=== PATIENT | female | born 1985 | race Caucasian/White ===

== ENCOUNTER 2018-01-15 05:40 | Inpatient (IN) | payer OTHER ==
[2018-01-15 06:40] VITALS: BMI 32.1
--- NOTE | 2018-01-15 06:42 | HP ---
Past Medical History - Primary Care Physician PCP:: Deidra Hutchinson - Admission Chief Complaint: 32 yrs , 39 weeks gestation srom since 4.30 AM, onset LP since 5.00AM ,brought by EMT History of Present Illness: Late registrant at [address] [place] [address] , on 01/07/18 , only 2 visits . Pt brought her records from her country DR Tamia Cain panel 01/07/18 O Pos, Hbsag neg, Rpr nr, Hiv neg, Rubella immune , sickle neg, lead neg, gc/ct neg,Hgb A1c 5.3 , GBS neg h/o pap ascus , anemia h/h 9.7/28.6, plt 320 in transfer records .h/o vomiting , Rx zofran h/o seen in L&D & ER for RUQ pain on 12/12/17, Iv hydration given, OB sono 35.4 weeks sliup. Liver sono cholelithiasis , no hydronephrosis on renal sono . 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 Weeks Gestation by Dates: 39 ...EDC by Dates: 01/22/18 ...EDC by Sono: 01/21/18 (39.1 weeks ) Heme/Onc: Yes: Anemia (rx po pnv & iron) Infectious Disease: Yes: Other (none known to her) Psych: Yes: Other (declines mental isues) Endocrine: No: Diabetes Mellitus, Hyperthyroidism, Hypothyroidism - Past Surgical History Past Surgical History: Yes: None Hx Myomectomy: No Hx Transabdominal Cerclage: No - Smoking History Smoking history: Never smoked - Alcohol/Substance Use History of Substance Use: reports: None Home Medications - Allergies Allergies/Adverse Reactions: Allergies Allergy/AdvReac Type Severity Reaction Status Date / Time aspirin Allergy Nausea Verified 12/12/17 12:10 - Home Medications Home Medications: Ambulatory Orders No122/Iron/Folic Acid [ Multi Tablet] 1 each PO DAILY 12/12/17 Physical Exam - Maternity Vital Signs: Vital Signs Temperature 97.9 F 01/15/18 06:21 Pulse Rate 87 01/15/18 06:21 Respiratory Rate 20 01/15/18 06:21 Blood Pressure 125/74 01/15/18 06:21 O2 Sat by Pulse Oximetry (%) Constitutional: Yes: Well Nourished Eyes: Yes: WNL HENT: Yes: WNL, Normocephalic Neck: Yes: WNL Cardiovascular: Yes: WNL Lungs: Clear to auscultation Breast(s): Yes: WNL. No: Mass - Abdominal Exam/OB Fundal Height: 38 Number of Fetuses: Single Presentation: Vertex Contractions: Yes Regularity: Irregular (dysfunctional uc) Intensity: Mild/Mod Monitor Mode: External Heart Rate (range): 150 Heart Rate Location: [facility] Category: I Accelerations: Uniform Decelerations: None - Vaginal Exam/OB Vaginal Bleediing: No Speculum Exam: No Dilatation (cm): close Effacement (%): 50 Amniotic Membrane Status: Ruptured (gross leaking, large amount of fluids) Nitrazine Test: Positive Amniotic Fluid: Yes: Clear Presentation: Vertex/Position Station: -3 - Physical Exam Musculoskeletal: Yes: WNL Extremities: Yes: WNL. No: Calf Tenderness Edema: Yes Edema: LLE: 1+, RLE: 1+ Integumentary: Yes: WNL Deep Tendon Reflex Grade: Normal +2 ...Motor Strength: WNL Psychiatric: Yes: WNL - Labs Lab Results: Laboratory Tests 01/15/18 01/15/18 01/15/18 07:20 07:20 07:20 WBC 10.4 H Hgb 12.3 Hct 35.1 Plt Count 218 Neutrophils % 74.5 Lymphocytes % 16.6 D PT with INR 10.70 INR 0.95 PTT (Actin FS) 26.5 L Sodium 136 Potassium 4.1 Chloride 103 Carbon Dioxide 22 BUN 9 Creatinine 0.5 L Random Glucose 80 Calcium 8.9 Ur Leukocyte Esterase U Marijuana (THC) Screen RPR Titer 01/15/18 01/15/18 01/15/18 07:20 09:30 09:30 WBC Hgb Hct Plt Count Neutrophils % Lymphocytes % PT with INR INR PTT (Actin FS) Sodium Potassium Chloride Carbon Dioxide BUN Creatinine Random Glucose Calcium Ur Leukocyte Esterase Negative U Marijuana (THC) Screen Negative RPR Titer Nonreactive Problem List - Problems (1) 39 weeks gestation of Code(s): Z3A.39 - 39 WEEKS GESTATION OF (2) SROM (spontaneous rupture of membranes) Code(s): HNG1926 - Assessment/Plan 32 yrs 39 weeks, srom ,onset LP natural , gbs neg Plan : allow progress of labor natural pitocin prn stadol + phenrgan prn for pain trial of labor for vaginal delivery antibiotics prophylaxis if not delivered within 18 hrs
[2018-01-15 07:47] LABS: BASO % 0.2 % (0-2.0); EOS % 1.2 % (0-4.5); HEMATOCRIT 35.1 % (32.4-45.2); HEMOGLOBIN 12.3 GM/dL (10.7-15.3); LYMPH % 16.6 % (8-40); MCH 30.6 pg (25.7-33.7); MCHC 34.9 g/dl (32.0-36.0); MEAN CELL VOLUME 87.8 fl (80-96); MEAN PLT VOLUME 7.1 fl (7.5-11.1); MONO % 7.5 % (3.8-10.2); NEUT % 74.5 % (42.8-82.8); PLATELET COUNT 218 K/MM3 (134-434); RDW 15.1 % (11.6-15.6); WHITE BLOOD COUNT 10.4 K/mm3 (4.0-10.0)
[2018-01-15 07:51] LABS: INR 0.95 (0.82-1.09); PROTHROMBIN TIME (PATIENT) 10.7 SEC (9.98-11.88)
[2018-01-15 07:54] LABS: ACTIVATED PTT 26.5 SECONDS (26.9-34.4)
[2018-01-15 08:04] LABS: ANION GAP 11 (8-16); BLOOD UREA NITROGEN 9 mg/dL (7-18); CALCIUM 8.9 mg/dL (8.5-10.1); CHLORIDE 103 mmol/L (98-107); CO2 22 mmol/L (21-32); CREATININE 0.5 mg/dL (0.55-1.02); GLUCOSE,RANDOM 80 mg/dL (74-106); POTASSIUM 4.1 mmol/L (3.5-5.1); SODIUM 136 mmol/L (136-145)
[2018-01-15] MEDS ORDERED: TUBERCULIN PPD 5 TU/0.1ML SYRINGE (IN PATIENT USE ONLY) ID ONE (09:30)
[2018-01-15] MEDS: DEXTROSE 5%-LACTATED RINGERS 1,000 ML IV SCH ×2 (10:05→17:43)
[2018-01-15 11:07] LABS: URINE APPEARANCE CLEAR; URINE BILIRUBIN NEGATIVE (<2.0 mg/dL); URINE COLOR LTYELLOW; URINE GLUCOSE (UA) NEGATIVE (NEGATIVE); URINE KETONE NEGATIVE (NEGATIVE); URINE LEUK ESTERASE NEGATIVE (NEGATIVE); URINE NITRITE NEGATIVE (NEGATIVE); URINE PROTEIN NEGATIVE (NEGATIVE); URINE UROBILINOGEN NEGATIVE mg/dL (0.2-1.0)
[2018-01-15 11:10] LABS: EPI CELLS RARE /HPF (FEW); URINE HYALINE CAST 3 /lpf; URINE MUCUS RARE
[2018-01-15 11:18] LABS: COCAINE, UR NEGATIVE ng/ml (CUTOFF=300); METHADONE, UR NEGATIVE ng/ml (CUTOFF=300); OPIATES, URI NEGATIVE ng/ml (CUTOFF=300); PHENCYCLIDINE,URINE NEGATIVE ng/ml (CUTOFF=25); URINE AMPHETAMINES NEGATIVE ng/ml (CUTOFF=500); URINE BARBITURATES NEGATIVE ng/ml (CUTOFF=200); URINE BENZODIAZEPINES NEGATIVE ng/ml (CUTOFF=200)
[2018-01-15] MEDS ORDERED: OXYTOCIN 30 UNITS in 0.9% NS 30 UNIT/500 ML INFUS.BAG IVPB SCH (11:30)
[2018-01-15] MEDS ORDERED: PROMETHAZINE HCL 25 MG/1 ML VIAL IVPUSH ONE (11:31)
[2018-01-15] MEDS ORDERED: BUTORPHANOL TARTRATE 1 MG/ML VIAL IVPB ONE (11:31)
--- NOTE | 2018-01-15 12:51 | PN ---
Progress Note (short form) - Note Progress Note: 12.40 pelvic ft/mid pose, 50 %/mr/vx /-3 fhr 130-140, fhr cat-1 , UC 5-6 min 11.30 AM Pitocin augmentation started at Selected Entries 01/15/18 01/15/18 11:00 12:00 Temperature 98.8 F Pulse Rate 98 H 84 Blood Pressure 122/69 130/65 I will hand over the management to Dr Hazel communications project manager. Problem List - Problems (1) 39 weeks gestation of Code(s): Z3A.39 - 39 WEEKS GESTATION OF (2) SROM (spontaneous rupture of membranes) Code(s): SJL7907 -
--- NOTE | 2018-01-15 17:41 | PN ---
Progress Note (short form) - Note Progress Note: cx 1 to 2 cm 70 vx -2, mr, clear, fhr cat1 regular contraction
[2018-01-15] MEDS ORDERED: PROMETHAZINE HCL 25 MG/1 ML VIAL ONE (18:32)
[2018-01-15] MEDS ORDERED: BUTORPHANOL TARTRATE 1 MG/ML VIAL ONE ×2 (18:32)
[2018-01-15] MEDS ORDERED: FENTANYL/BUPIVACAINE/NS/PF - PCEA - 50 ML DISP.SYRIN EP ONE (23:20)
--- NOTE | 2018-01-15 23:20 | PN ---
Progress Note (short form) - Note Progress Note: cx 3 cm 80 vx -1 mr, fhr cat1. regular contarction
[2018-01-15] MEDS ORDERED: AMPICILLIN SODIUM 2 GM VIAL ONE (23:22)
[2018-01-15] MEDS ORDERED: ELECTROLYTE-148 SOLN 1,000 ML IV SCH (23:30)
[2018-01-15] MEDS ORDERED: AMPICILLIN - 2 GM in SODIUM CHLORIDE 100 ML IVPB ONE (23:45)
[2018-01-16] MEDS ORDERED: NALOXONE HCL 0.4 MG/ML VIAL IVPUSH PRN (00:13)
[2018-01-16] MEDS ORDERED: FENTANYL/BUPIVACAINE/NS/PF - PCEA - 50 ML DISP.SYRIN EP SCH (00:15)
[2018-01-16] MEDS ORDERED: FENTANYL/BUPIVACAINE/NS/PF - PCEA - 50 ML DISP.SYRIN EP ONE (02:45)
[2018-01-16] MEDS ORDERED: AMPICILLIN SODIUM 1 GM VIAL ONE (02:46)
[2018-01-16] MEDS ORDERED: AMPICILLIN - 1 GM in SODIUM CHLORIDE 100 ML IVPB SCH (03:30)
[2018-01-16] MEDS ORDERED: LIDOCAINE HCL 1% PRESERVATIVE FREE - 30ML VIAL ONE (03:50)
[2018-01-16] MEDS ORDERED: OXYTOCIN 20 UNITS in 0.9% NS 20 UNIT/1,000 ML INFUS.BAG IV ONE ×2 (03:51→09:22)
[2018-01-16] MEDS ORDERED: BISACODYL 10 MG SUPP.RECT RC PRN (05:51)
[2018-01-16] MEDS ORDERED: BENZOCAINE 28 GM HEMORRHOIDAL OINTMENT TP PRN (05:51)
[2018-01-16] MEDS ORDERED: WITCH HAZEL 50% (TUCKS) 40 PAD/JAR PAD TP PRN (05:51)
[2018-01-16] MEDS ORDERED: IBUPROFEN 600 MG TABLET (FP) PO PRN (05:51)
[2018-01-16] MEDS ORDERED: ACETAMINOPHEN 325 MG TABLET (FP) PO PRN (05:51)
[2018-01-16] MEDS ORDERED: BENZOCAINE 20% 57 GM BOTTLE TP PRN (05:51)
[2018-01-16] MEDS ORDERED: METHYLERGONOVINE MALEATE 0.2 MG/1 ML AMP IM PRN (05:51)
[2018-01-16] MEDS ORDERED: oxyCODONE HCL 5 MG TABLET PO PRN (05:51)
--- NOTE | 2018-01-16 05:54 | PN ---
Progress Note (short form) - Note Progress Note: 430 am full 100 vx 1+ wants to push. fhr cat 1
[2018-01-16] MEDS ORDERED: OXYTOCIN 20 UNITS in 0.9% NS 20 UNIT/1,000 ML INFUS.BAG IV SCH (06:00)
[2018-01-16 06:39] LABS: ARTERIAL BLOOD GAS BASE EXCESS -5.1 meq/l (-2-2); ARTERIAL BLOOD GAS PCO2 54.6 mmHg (35-45); ARTERIAL BLOOD GAS pH 7.25 (7.35-7.45)
[2018-01-16 06:43] LABS: VENOUS PC02 49.3 mmHg (38-52); VENOUS PH 7.3 (7.32-7.42); VENOUS PO2 28.1 mmHg (28-48)
[2018-01-16 06:44] LABS: ARTERIAL BLOOD GAS PO2 22.9 mmHg (80-100)
[2018-01-16] MEDS ORDERED: PRENATAL VITAMINS W/ FOLIC ACID TABLET (FP) PO SCH (10:00)
[2018-01-16] MEDS: OXYTOCIN 20 UNITS in 0.9% NS 20 UNIT/1,000 ML INFUS.BAG IV SCH (10:00)
[2018-01-16] MEDS ORDERED: PATIENT'S OWN MEDICATION (NON-FORMULARY) (Prenatal No122/Iron/Folic Acid [Prenatal Multi T PO SCH (10:00)
[2018-01-16] MEDS: FERROUS SO4 325 MG TABLET (FP) PO SCH ×2 (10:48→21:26)
[2018-01-16] MEDS: PRENATAL VITAMINS W/ FOLIC ACID TABLET (FP) PO SCH (10:49)
[2018-01-16] MEDS: SENNOSIDES/DOCUSATE COMBO (SENNA PLUS) TABLET (UD) PO PRN (21:27)
[2018-01-17] MEDS: OXYTOCIN 20 UNITS in 0.9% NS 20 UNIT/1,000 ML INFUS.BAG IV SCH (07:30)
[2018-01-17 08:27] LABS: BASO % 0.2 % (0-2.0); EOS % 0.7 % (0-4.5); HEMATOCRIT 29.1 % (32.4-45.2); HEMOGLOBIN 9.8 GM/dL (10.7-15.3); LYMPH % 18.6 % (8-40); MCH 30.3 pg (25.7-33.7); MCHC 33.6 g/dl (32.0-36.0); MEAN CELL VOLUME 90.3 fl (80-96); MEAN PLT VOLUME 7.2 fl (7.5-11.1); MONO % 7.8 % (3.8-10.2); NEUT % 72.7 % (42.8-82.8); PLATELET COUNT 180 K/MM3 (134-434); RBC 3.22 M/mm3 (3.60-5.2); RDW 14.9 % (11.6-15.6); WHITE BLOOD COUNT 12.6 K/mm3 (4.0-10.0)
--- NOTE | 2018-01-17 08:27 | PN ---
Progress Note (short form) - Note Progress Note: ppd 1 doing well, ambulating CBC, BMP 01/15/18 07:20 Last Vital Signs Temp Pulse Resp BP Pulse Ox 98.2 F 78 20 101/64 93 L 01/17/18 06:00 01/17/18 06:00 01/17/18 06:00 01/17/18 06:00 01/16/18 06:15 abdomen soft, non tender , uterus firm lochia mild , no calf tenderness perineum clean plan ambulate, cbc
[2018-01-17] MEDS ORDERED: FLU VACCINE QUAD 60 MCG/0.5 ML (MDV 17-18) IM ONE ×2 (08:45→10:00)
[2018-01-17] MEDS ORDERED: PNEUMOCOCCAL 23 VACCINE 0.5 ML VIAL IM ONE (09:00)
[2018-01-17] MEDS: FERROUS SO4 325 MG TABLET (FP) PO SCH ×2 (09:34→22:07)
[2018-01-17] MEDS: PRENATAL VITAMINS W/ FOLIC ACID TABLET (FP) PO SCH (09:34)
[2018-01-17] MEDS ORDERED: DIPHTH,PERTUSS(ACELL),TET 0.5 ML DISP.SYRIN IM ONE (10:00)
[2018-01-17] MEDS ORDERED: PNEUMOC 13-VAL CONJ-DIP CRM/PF 0.5 ML DISP.SYRIN IM ONE (10:00)
[2018-01-17] MEDS: SENNOSIDES/DOCUSATE COMBO (SENNA PLUS) TABLET (UD) PO PRN (22:07)
[2018-01-18] MEDS ORDERED: DOCUSATE SODIUM 100 MG CAPSULE (FP) PO ONE (09:26)
[2018-01-18] MEDS: FERROUS SO4 325 MG TABLET (FP) PO SCH (09:43)
[2018-01-18] MEDS: PRENATAL VITAMINS W/ FOLIC ACID TABLET (FP) PO SCH (09:43)
[2018-01-18 11:52] VITALS: BP 122/73; PULSE 79; TEMP 98.2
--- NOTE | 2018-01-18 12:53 | DS ---
Physical Exam-MERCHANDISER SEASONAL Vital Signs: Vital Signs Temperature 98.2 F 01/18/18 10:00 Pulse Rate 79 01/18/18 10:00 Respiratory Rate 20 01/18/18 10:00 Blood Pressure 122/73 01/18/18 10:00 O2 Sat by Pulse Oximetry (%) 93 L 01/16/18 06:15 Constitutional: Yes: Well Nourished, No Distress, Calm Eyes: Yes: WNL, Conjunctiva Clear, EOM Intact HENT: Yes: WNL, Atraumatic, Normocephalic Neck: Yes: WNL, Supple, Trachea Midline Cardiovascular: Yes: WNL, Regular Rate and Rhythm Respiratory: Yes: WNL, Regular, CTA Bilaterally Gastrointestinal: Yes: WNL ...Rectal Exam: Yes: WNL Renal/: Yes: WNL ....Post : Yes: Uterus firm, Uterus non-tender, Slight lochia rubra, Slight lochia serosa Breast(s): Yes: WNL Musculoskeletal: Yes: WNL Extremities: Yes: WNL, Internal Rotation Integumentary: Yes: WNL Neurological: Yes: WNL, Alert, Oriented ...Motor Strength: WNL Psychiatric: Yes: WNL, Alert, Oriented Labs: CBC, BMP 01/17/18 07:45 01/15/18 07:20 Delivery - Delivery Vaginal Delivery: Spontaneous (no complication) Type of Anesthesia: Epidural Episiotomy/Laceration: Midline EBL (cc): 350 Delivery, Single - Stages of Labor Date 1st Stage Initiatied: 01/15/18 Time 1st Stage Initiated: 05:00 Date 2nd Stage Initiated: 01/16/18 Time 2nd Stage Initiated: 04:30 Date of Delivery: 01/16/18 Time of Delivery: 05:24 Time Placenta Delivered: 05:35 Placenta: Yes: Spontaneous - Condition of Infant Trust Administrator/Student Activities Director Present: No Gender: Female Weight: 7 lb 10 oz Position: OA Total Hours ROM (Hrs/Mins): 25Hr/5Mins - 1 Minute Total Score: 8 5 Minutes Total Score: 9 - [place] Feeding Plan Initial Plan: Exclusive throughout hospitalization Discharge Summary Reason For Visit: LABOR Current Active Problems 39 weeks gestation of (Acute) SROM (spontaneous rupture of membranes) (Acute) Procedures: Principal: Condition: Good - Instructions Diet, Activity, Other Instructions: regular diet, no intercourse, , if pain, heavy vaginal bleeding call MD. Pt instructed to call call clinic for 4-6 week follow up appointment. Referrals: Son Hazel MD [Staff Physician] - Disposition: HOME - Home Medications Comprehensive Discharge Medication List: Ambulatory Orders No122/Iron/Folic Acid [ Multi Tablet] 1 each PO DAILY 12/12/17 Ibuprofen [Motrin -] 600 mg PO QID #28 tablet 01/17/18
== END 2018-01-18 15:10 | disposition home or self-care (01) | DRG 560 ==
LOC: JDEL 05:40 → JLDR 05:50 → J3W 01-16 08:35
PROVIDERS: ADMIT Obstetrics & Gynecology; ATTEND Obstetrics & Gynecology
PROC: 10E0XZZ Delivery of Products of Conception, External Approach (ICD-10-PCS; principal; 2018-01-16)
PROC: 0W8NXZZ Division of Female Perineum, External Approach (ICD-10-PCS; 2018-01-16)
DX: O80 Encounter for full-term uncomplicated delivery (principal); Z3A.39 39 weeks gestation of pregnancy; Z37.0 Single live birth
CPT/HCPCS: 36415; 36600; 59409; 80048; 80307; 81003; 81015; 82803; 85025; 85610; 85730; 86593; 86850; 86900; 86901; 90688; 90715; 90732; G0008; G0009

== ENCOUNTER 2018-01-21 15:32 | Day surgery (SDC) | payer OTHER ==
--- NOTE | 2018-01-21 15:48 | PDOC ---
Rapid Medical Evaluation Time Seen by Provider: 01/21/18 15:39 Medical Evaluation: Allergies Allergy/AdvReac Type Severity Reaction Status Date / Time aspirin Allergy Nausea Verified 01/21/18 15:44 01/21/18 15:45 I have performed a brief in-person evaluation of this patient. The patient presents with a chief complaint of: worsening bleeding, delivered 01/15, 2 full pads since this am, OBGYN [facility], +chills this morning, Pertinent physical exam findings: well appearing, VSS I have ordered the following: labs The patient will proceed to the ED for further evaluation. Discharge Disposition - Diagnosis bleeding - Discharge Dispostion Disposition: LEFT BEFORE LIO AHMADI - Referrals - Patient Instructions - Post Discharge Activity
[2018-01-21 15:52] VITALS: BMI 30.2
--- NOTE | 2018-01-21 16:55 | PDOC ---
Attending Attestation - HPI HPI: 01/21/18 18:47 The patient is a 36 year old female ((5 days s/p spontaneous vaginal delivery of healthy baby about 18 hours after ROM, required episiotomy and sutures), with no known past medical history presents to the emergency department with heavy bleeding since earlier today. The patient reports she bled through 3 pads today. The patient reports mild cramping, chills and mild dysuria. The patient denies chest pain, shortness of breath, headache and dizziness. Denies fever, chills, nausea, vomit, Vaginal discharge, diarrhea and constipation. Denies frequency, urgency and hematuria. Allergies: Aspirin Social History: None reported OB: Dr. Hazel - Physicial Exam PE: 01/21/18 18:48 GENERAL: Awake, alert, and fully oriented, in no acute distress HEAD: No signs of trauma EYES: PERRLA, EOMI, sclera anicteric, conjunctiva clear ENT: Auricles normal inspection, hearing grossly normal, nares patent, oropharynx clear without exudates. Moist mucosa NECK: Normal ROM, supple, no lymphadenopathy, JVD, or masses LUNGS: Breath sounds equal, clear to auscultation bilaterally. No wheezes, and no crackles HEART: Regular rate and rhythm, normal S1 and S2, no murmurs, rubs or gallops ABDOMEN: (+) Palpable uterus. Below umbilicus: mild super pubic tenderness. Soft , normoactive bowel sounds. No guarding, no rebound. No masses EXTREMITIES: Normal range of motion, no edema. No clubbing or cyanosis. No cords, erythema, or tenderness NEUROLOGICAL: Cranial nerves II through XII grossly intact. Normal speech. SKIN: Warm, Dry, normal turgor, no rashes or lesions noted. - Medical Decision Making 01/21/18 18:51 Documentation prepared by Danay Fitch, acting as medical laboratory technicians for Josefa Hui DO. <Danay Fitch - Last Filed: 01/21/18 18:53> - Resident Resident Name: Alina Burroughs - ED Attending Attestation I have performed the following: I have examined & evaluated the patient, The case was reviewed & discussed with the resident, I agree w/resident's findings & plan, Exceptions are as noted - Medical Decision Making 01/21/18 16:55 I, Dr. Josefa Hui, DO, attest that this document has been prepared under my direction and personally reviewed by me in its entirety. I further attest, that it accurately reflects all work, treatment, procedures and medical decision -making performed by me. 01/21/18 17:32 a/p: 33yo s/p spontaneous vag delivery 4 days ago with vaginal bleeding, chills, and dysuria -bled through 3 pads today -had an episotomy during the delivery -hot and cold today - no documented fevers -will check labs, ua, ucx -tv us to eval for poss retained products -Dr. Hazel was CRYPTOLOGIC SUPPORT SPECIALIST -will monitor and reassess 01/21/18 21:35 pt with poss retained products discussed case with Dr. Acevedo who will see the patient in consult 01/21/18 22:01 Dr. Acevedo at the bedside to eval the patient 01/21/18 22:[address] Acevedo - to the OR for d/c <Josefa Hui - Last Filed: 01/21/18 22:08>
--- NOTE | 2018-01-21 17:02 | PDOC ---
History of Present Illness - General Chief Complaint: Vaginal Bleeding Stated Complaint: BLEEDING (POST-PREG) Time Seen by Provider: 01/21/18 15:39 History Source: Patient Exam Limitations: No Limitations - History of Present Illness Initial Comments: 33 YOF who is (5 days s/p spontaneous vaginal delivery of healthy baby about 18 hours after ROM, required episiotomy and sutures, GBS- but reports she was given abx for PROM) with h/o asthma who p/w continued bright red vaginal bleeding since delivery, now with blood clots. She additionally notes 7/10 suprapubic pain (patient points). The patient notes chills and mild burning on urination, but denies any measured fever, chills, nausea, vomiting, diarrhea, constipation, strange colors/smells to her urine, vaginal discharge, headache, vision changes, chest pain, SOB, worsened swelling or leg pain, or other symptoms. Past History - Past Medical History Allergies/Adverse Reactions: Allergies Allergy/AdvReac Type Severity Reaction Status Date / Time aspirin Allergy Nausea Verified 01/21/18 15:49 Home Medications: Ambulatory Orders No122/Iron/Folic Acid [ Multi Tablet] 1 each PO DAILY 12/12/17 Asthma: Yes Cancer: No Cardiac Disorders: No COPD: No Diabetes: No HTN: No Seizures: No Thyroid Disease: No - Immunization History Immunization Up to Date: Yes - Suicide/Smoking/Psychosocial Hx Smoking History: Never smoked Have you smoked in the past 12 months: No Information on smoking cessation initiated: No Hx Alcohol Use: No Drug/Substance Use Hx: No Substance Use Type: None Hx Substance Use Treatment: No Review of Systems - Review of Systems Able to Perform ROS?: Yes Constitutional: Yes: Chills. No: Fever, Unexplained wgt Loss HEENTM: No: Nose Congestion, Throat Pain Respiratory: No: Cough, Shortness of Breath Cardiac (ROS): No: Chest Pain, Palpitations ABD/GI: Yes: Other (abdominal pain). No: Constipated, Diarrhea, Nausea, Vomiting : Yes: Burning, Other (vaginal bleeding). No: Dysuria Musculoskeletal: No: Back Pain, Neck Pain Integumentary: No: Bruising, Rash Neurological: No: Headache, Numbness, Tingling, Weakness, Dizziness Endocrine: No: Unexplained Weight Gain, Unexplained Weight Loss *Physical Exam - Vital Signs Last Vital Signs Temp Pulse Resp BP Pulse Ox 98.3 F 84 17 146/80 98 01/21/18 15:49 01/21/18 15:49 01/21/18 15:49 01/21/18 15:49 01/21/18 15:49 - Physical Exam General Appearance: Yes: Nourished, Appropriately Dressed, Other (well appearing and appropriately answering Uzbek-speaking female accompanied by her mother). No: Apparent Distress HEENT: positive: EOMI, KENZIE, Normal ENT Inspection, Normal Voice, Hearing Grossly Normal. negative: Scleral Icterus (R), Scleral Icterus (L), Nasal Congestion Neck: positive: Trachea midline, Supple. negative: Tender, Rigid Respiratory/Chest: positive: Lungs Clear, Normal Breath Sounds. negative: Respiratory Distress, Crackles, Rhonchi, Stridor, Wheezing Cardiovascular: positive: Regular Rhythm, Regular Rate, S1, S2. negative: Edema , JVD, Murmur Female Pelvic Exam: positive: other (moderate amount of bright red blood from the vaginal vault, episiotomy incision with sutures in place and no dehiscence) Gastrointestinal/Abdominal: positive: Normal Bowel Sounds, Soft. negative: Tender, Organomegaly, Pulsatile Mass, Guarding Musculoskeletal: positive: Normal Inspection. negative: Decreased Range of Motion, Vertebral Tenderness Extremity: positive: Normal Capillary Refill, Normal Inspection, Normal Range of Motion. negative: Tender, Cyanosis Integumentary: positive: Normal Color, Dry, Warm. negative: Erythema, Rash, Bruising Neurologic: positive: microgrinder operator II-XII NML intact (grossly), Fully Oriented, Alert, Normal Mood/Affect, Normal Response, Motor Strength 5/5. negative: Facial Droop , Numbness, Sensory Deficit, Confused, Disoriented ED Treatment Course - LABORATORY CBC & Chemistry Diagram: 01/21/18 17:25 01/21/18 17:25 Medical Decision Making - Medical Decision Making Adult female patient p/w suprapubic/pelvic pain and vaginal bleeding 5 days . Initial Vital Signs Temp Pulse Resp BP Pulse Ox 98.3 F 84 17 146/80 98 01/21/18 15:49 01/21/18 15:49 01/21/18 15:49 01/21/18 15:49 01/21/18 15:49 Exam: Well appearing, normal heart and lung exams, abdominal exam gravid with mild suprapubic ttp, bright red blood on genital exam, sutured episiotomy site without dehiscence, no discharge DDX IBNLT: normal vaginal bleeding and pain, episiotomy dehiscence, retained products, UTI/pyelonephritis, endometritis, chorioamnionitis , ovarian cyst, PID/TOA, cervicitis, hernia, appendicitis, musculoskeletal, dysmenorrhea, fibroids, etc. W/U ordered: CBCD CMP Mg Phos Coags T&S UA UCx GC/Chlam/trich amplification ( cervical swab) GC culture, transvaginal US TX ordered: IVF, Ofirmev Unlikely UTI/pyelonephritis as patient has no dysuria, strange colors/smells, no h/o recurrent UTI. Unlikely ovarian cyst as patient denies h/o ovarian cysts, unlikely hemorrhagic as pt denies sxs of anemia. Unlikely PID/TOA/cervicitis as patient denies h/o STIs, no report of abnormal discharge no adnexal ttp Unlikely endometritis as patient is not recently , no procedures, no abnormal discharge. Labs: Laboratory Results - last 24 hr 01/21/18 01/21/18 01/21/18 17:25 17:25 17:25 WBC 9.3 RBC 3.74 Hgb 11.6 D Hct 33.7 D MCV 90.1 MCH 30.9 MCHC 34.3 RDW 14.7 Plt Count 338 D MPV 6.6 L Neutrophils % 74.1 Lymphocytes % 16.6 Monocytes % 6.4 Eosinophils % 2.0 D Basophils % 0.9 D PT with INR 11.00 INR 0.97 Sodium 140 Potassium 3.8 Chloride 103 Carbon Dioxide 27 Anion Gap 10 BUN 10 Creatinine 0.6 Creat Clearance w eGFR > 60 Random Glucose 85 Calcium 8.9 Total Bilirubin 0.6 AST 28 ALT 27 Alkaline Phosphatase 150 H Total Protein 6.7 Albumin 3.2 L Urine Color Urine Appearance Urine pH Ur Specific Sherman Urine Protein Urine Glucose (UA) Urine Ketones Urine Blood Urine Nitrite Urine Bilirubin Urine Urobilinogen Ur Leukocyte Esterase Urine WBC (Auto) Urine RBC (Auto) Ur Epithelial Cells Urine Mucus Blood Type Antibody Screen 01/21/18 01/21/18 17:25 18:26 WBC RBC Hgb Hct MCV MCH MCHC RDW Plt Count MPV Neutrophils % Lymphocytes % Monocytes % Eosinophils % Basophils % PT with INR INR Sodium Potassium Chloride Carbon Dioxide Anion Gap BUN Creatinine Creat Clearance w eGFR Random Glucose Calcium Total Bilirubin AST ALT Alkaline Phosphatase Total Protein Albumin Urine Color Straw Urine Appearance Clear Urine pH 6.0 Ur Specific Sherman 1.009 Urine Protein Negative Urine Glucose (UA) Negative Urine Ketones Negative Urine Blood 3+ H Urine Nitrite Negative Urine Bilirubin Negative Urine Urobilinogen Negative Ur Leukocyte Esterase Trace Urine WBC (Auto) 74 Urine RBC (Auto) 27 Ur Epithelial Cells Rare Urine Mucus Rare Blood Type O POSITIVE Antibody Screen Negative Pelvis US: Heterogenous material within the uterus may represent clot or retained POC. Reassessment: Continued mild suprapubic ttp and moderate vaginal bleeding Consults: Dr. Acevedo sees and examines patient. The patients symptoms persist despite ED treatments. The patient is unsafe for discharge at this time. They require further hospital observation, workup, and treatment. She has been assessed by OB Dr. Acevedo who agrees she should go to the OR. Decision to Admit order placed to Dr. Acevedo to OR. *DC/Admit/Observation/Transfer Diagnosis at time of Disposition: Retained products of conception bleeding Qualifiers: hemorrhage type: unspecified Qualified Code(s): O72.1 - Other immediate hemorrhage - Discharge Dispostion Condition at time of disposition: Guarded Admit: Yes - Referrals - Patient Instructions - Post Discharge Activity
[2018-01-21 17:35] LABS: BASO % 0.9 % (0-2.0); HEMATOCRIT 33.7 % (32.4-45.2); HEMOGLOBIN 11.6 GM/dL (10.7-15.3); LYMPH % 16.6 % (8-40); MCH 30.9 pg (25.7-33.7); MCHC 34.3 g/dl (32.0-36.0); MEAN CELL VOLUME 90.1 fl (80-96); MEAN PLT VOLUME 6.6 fl (7.5-11.1); MONO % 6.4 % (3.8-10.2); NEUT % 74.1 % (42.8-82.8); PLATELET COUNT 338 K/MM3 (134-434); RBC 3.74 M/mm3 (3.60-5.2); RDW 14.7 % (11.6-15.6); WHITE BLOOD COUNT 9.3 K/mm3 (4.0-10.0)
[2018-01-21 18:07] LABS: ALBUMIN 3.2 g/dl (3.4-5.0); ANION GAP 10 (8-16); BILIRUBIN,TOTAL 0.6 mg/dL (0.2-1.0); BLOOD UREA NITROGEN 10 mg/dL (7-18); CALCIUM 8.9 mg/dL (8.5-10.1); CHLORIDE 103 mmol/L (98-107); CO2 27 mmol/L (21-32); CREATININE 0.6 mg/dL (0.55-1.02); GLUCOSE,RANDOM 85 mg/dL (74-106); POTASSIUM 3.8 mmol/L (3.5-5.1); SGOT/AST 28 U/L (15-37); SGPT/ALT 27 U/L (12-78); SODIUM 140 mmol/L (136-145); TOT PROT 6.7 g/dl (6.4-8.2)
[2018-01-21 18:08] LABS: ALK PHOS 150 U/L (45-117)
[2018-01-21 18:21] LABS: INR 0.97 (0.82-1.09)
[2018-01-21 18:35] LABS: URINE APPEARANCE CLEAR; URINE BILIRUBIN NEGATIVE (<2.0 mg/dL); URINE COLOR STRAW; URINE GLUCOSE (UA) NEGATIVE (NEGATIVE); URINE KETONE NEGATIVE (NEGATIVE); URINE LEUK ESTERASE TRACE (NEGATIVE); URINE NITRITE NEGATIVE (NEGATIVE); URINE PROTEIN NEGATIVE (NEGATIVE); URINE UROBILINOGEN NEGATIVE mg/dL (0.2-1.0)
[2018-01-21 18:46] LABS: EPI CELLS RARE /HPF (FEW); URINE MUCUS RARE
[2018-01-21] MEDS ORDERED: ACETAMINOPHEN 1000 MG/100 ML VIAL (NON FORMULARY) IVPB ONE (21:53)
[2018-01-21] MEDS ORDERED: SODIUM CHLORIDE 0.9% 1000 ML INFUS.BAG IV ONE (22:09)
--- NOTE | 2018-01-21 22:12 | CON.OBG ---
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 Patient was evaluated in ER, a sonogram was done and showed evidence of retained product of conception. - History Source History Provided By: Patient Limitations to Obtaining History: No Limitations - Past Medical History Hepatobiliary: Yes: Cholelithiasis (diagnosed 12/12/17) Renal/: Yes: UTI (h/o uti 1 month before ) ...: No ...Para: 1 Infectious Disease: Yes: Other (none known to her) Psych: Yes: Other (declines mental isues) - Past Surgical History Past Surgical History: Yes: None - Alcohol/Substance Use Hx Alcohol Use: No History of Substance Use: reports: None - Smoking History Smoking history: Never smoked Have you smoked in the past 12 months: No - Social History History of Recent Travel: No Home Medications - Allergies Allergies/Adverse Reactions: Allergies Allergy/AdvReac Type Severity Reaction Status Date / Time aspirin Allergy Nausea Verified 01/21/18 15:49 - Home Medications Home Medications: Ambulatory Orders No122/Iron/Folic Acid [ Multi Tablet] 1 each PO DAILY 12/12/17 Family Disease History - Family Disease History Family History: Unremarkable Review of Systems - Review of Systems Constitutional: reports: Malaise Eyes: reports: No Symptoms HENT: reports: No Symptoms Neck: reports: No Symptoms Cardiovascular: reports: No Symptoms Genitourinary: reports: Vaginal Bleeding Neurological: reports: No Symptoms Psychiatric: reports: No Symptoms Pain Intensity: 3 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 Vital Signs: Vital Signs Temperature 98.3 F 01/21/18 15:49 Pulse Rate 84 01/21/18 15:49 Respiratory Rate 17 01/21/18 15:49 Blood Pressure 146/80 01/21/18 15:49 O2 Sat by Pulse Oximetry (%) 98 01/21/18 15:49 Constitutional: Yes: Calm Eyes: Yes: Conjunctiva Clear Neck: Yes: Supple Cardiovascular: Yes: Regular Rate and Rhythm Respiratory: Yes: Regular Gastrointestinal: Yes: Normal Bowel Sounds Pelvis: Yes: Tenderness External Genitalia: Yes: Normal Vaginal Exam: Yes: Bleeding Cervix: Yes: Other (Open cervical os) Uterus: Yes: Boggy ....Post : Yes: Uterus boggy Breast(s): Yes: WNL Musculoskeletal: Yes: WNL Extremities: Yes: WNL Neurological: Yes: Alert, Oriented Psychiatric: Yes: Alert, Oriented Labs: CBC, BMP 01/21/18 17:25 01/21/18 17:25 Problem List - Problems (1) Retained products of conception after delivery with complications Code(s): O73.1 - RETAINED PORTIONS OF PLACENTA AND MEMBRANES, W/O HEMORRHAGE Assessment/Plan hemorrhage Retained product of conception NPO Pre op for suction D&C Consent signed Anesthesia to see patient
[2018-01-21] MEDS ORDERED: ONDANSETRON 4 MG/2 ML VIAL IVPUSH PRN (23:00)
[2018-01-21] MEDS ORDERED: LACTATED RINGERS SOLUTION 1,000 ML IV SCH (23:00)
[2018-01-21] MEDS ORDERED: PROMETHAZINE HCL 25 MG/1 ML VIAL IVPUSH PRN (23:00)
[2018-01-22] MEDS ORDERED: DEXAMETHASONE SOD PHOSPHATE 4 MG/1 ML VIAL ONE (00:20)
[2018-01-22] MEDS ORDERED: LIDOCAINE HCL/PF 2% SDV 5ML VIAL ONE (00:20)
[2018-01-22] MEDS ORDERED: ONDANSETRON 4 MG/2 ML VIAL ONE (00:20)
[2018-01-22] MEDS ORDERED: SODIUM CHLORIDE 0.9% P/F 10 ML VIAL IJ ONE (00:20)
[2018-01-22] MEDS ORDERED: KETOROLAC TROMETHAMINE 30 MG/1 ML VIAL ONE (00:20)
[2018-01-22] MEDS ORDERED: ceFAZolin SODIUM 1 GM VIAL ONE (00:20)
[2018-01-22] MEDS ORDERED: PROPOFOL 20 ML ONE (00:20)
--- NOTE | 2018-01-22 00:42 | OP ---
Operative Note - Note: Operative Date: 01/22/18 Pre-Operative Diagnosis: Retained product of conception Operation: Suction D&C Findings: Heavy vaginal bleeding Post-Operative Diagnosis: Same as Pre-op Surgeon: Tea Acevedo Anesthesia: General Specimens Removed: Product of conception Estimated Blood Loss (mls): 50 Operative Report Dictated: Yes
[2018-01-22 03:25] VITALS: BP 130/76; PULSE 71; TEMP 97.7
--- NOTE | 2018-01-22 06:59 | OP ---
DATE OF OPERATION: 01/22/2018 PREOPERATIVE DIAGNOSIS: bleeding secondary to retained products of conception. POSTOPERATIVE DIAGNOSIS: bleeding secondary to retained products of conception. PROCEDURE: Suction dilatation and curettage. SURGEON: Tea Acevedo MD ANESTHESIA: General. COMPLICATIONS: None. ESTIMATED BLOOD LOSS: 50 mL. DESCRIPTION OF PROCEDURE: Patient was taken to the operating room, where general anesthesia was administered. Patient was then placed in lithotomy position. She was then prepped and draped in proper sterile fashion. A weighted speculum was placed in the vagina. The anterior lip of the cervix was grasped with a single-tooth tenaculum, and a 10-mm suction curette was then gently introduced into the uterine cavity. The suction curette was rotated to clear the uterus of all products of conception. A sharp curettage was then performed. Then, the curette was then reintroduced to clear the uterus of all remaining products of conception. Then, the instruments were removed. The patient was taken out of lithotomy position. She was taken to PACU in stable condition. PATHOLOGY: Products of conception. Jose [id number]
--- NOTE | 2018-01-23 16:20 | PATH ---
Surgical Pathology Report Patient Name: THELMA MAI [facility]. Rec. #: [id number] /Age/Gender: 1985 (Age: 33) / F Account: [id number] Location: AMBULATORY SURG Taken: 01/22/2018 Received: 01/22/2018 Reported: 01/23/2018 Physicians: Niko Anders M.D. Specimen(s) Received PRODUCTS OF CONCEPTION Clinical History Retained placenta Final Diagnosis PRODUCTS OF CONCEPTION, SUCTION DILATION AND CURETTAGE: FRAGMENTS OF INFLAMED DECIDUA IN A BACKGROUND OF BLOOD CLOTS AND ACUTE INFLAMMATORY INFILTRATE CONSISTENT WITH RETAINED PRODUCTS OF CONCEPTION. SCANT FRAGMENTS OF BENIGN ENDOCERVICAL TISSUE. Electronically Signed Darleen Padilla M.D. Gross Description Received in formalin labeled "products of conception," is a 19.0 x 15.0 x 1.5 cm aggregate of red-brown soft tissue fragments admixed with blood clot. No definite villous tissue or somatic tissue is identified. 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 /01/22/2018 [facility]/01/22/2018
== END 2018-01-22 07:40 | disposition home or self-care (01) ==
LOC: JER 15:32 → JASUSAT 22:07 → J5S 01-22 02:55 → JASUSAT 01-22 07:40
PROVIDERS: ATTEND Obstetrics & Gynecology
PROC: 10D17ZZ Extraction of Products of Conception, Retained, Via Natural or Artificial Opening (ICD-10-PCS; principal; 2018-01-21 23:00)
DX: O72.2 Delayed and secondary postpartum hemorrhage (principal); Z37.0 Single live birth
CPT/HCPCS: 36415; 76856-TC; 80053; 81003; 81015; 85025; 85610; 86850; 86900; 86901; 87086; 88305-TC; 94760; 99284-25; 99285-25; J0131; J7030